=== PATIENT | female | born 1970 | race Caucasian/White ===

== ENCOUNTER 2017-12-20 09:15 | Emergency (ER) | payer OTHER ==
[2017-12-20 09:21] VITALS: BMI 23.8
[2017-12-20 09:24] VITALS: BP 132/84; PULSE 107; RESP 18; TEMP 99.3; O2SAT 100
--- NOTE | 2017-12-20 10:13 | C.PDOC ---
History Of Present Illness 47 year old female presents to the ER with a complaint of fever, chills, generalized weakness, generalized body aches, and sore throat; associated with mild runny nose and mild cough for the past 4 days. Patient reports having positive family members at home with similar symptoms. Denies recent travel. Time Seen by Provider: 12/20/17 09:22 Chief Complaint (Nursing): Flu-like Symptoms History Per: Patient History/Exam Limitations: no limitations Onset/Duration Of Symptoms: Days Current Symptoms Are (Timing): Still Present Location Of Pain: Throat, Diffuse Myalgias Sick Contacts (Context): None Associated Symptoms: Fever, Chills, Sore Throat, Cough, Sinus Drainage, Myalgias Ear Symptoms: Bilateral: None Recent travel outside of the [place]: No Past Medical History Reviewed: Historical Data, Nursing Documentation, Vital Signs Vital Signs: Last Vital Signs Temp 99.3 F 12/20/17 09:23 Pulse 107 H 12/20/17 09:23 Resp 18 12/20/17 09:23 BP 132/84 12/20/17 09:23 Pulse Ox 100 12/20/17 10:26 - Medical History PMH: Anemia Family History: States: Unknown Family Hx - Social History Hx Alcohol Use: No Hx Substance Use: No - Immunization History Hx Tetanus Toxoid Vaccination: No Hx Influenza Vaccination: No Hx Pneumococcal Vaccination: No Review Of Systems Except As Marked, All Systems Reviewed And Found Negative. Constitutional: Positive for: Fever, Chills, Weakness ENT: Positive for: Nose Discharge, Throat Pain Respiratory: Positive for: Cough Musculoskeletal: Positive for: Other (Body aches) Physical Exam - Physical Exam Additional Physical Exam Comments: Appears: Well Appearing. Non-toxic. Skin: No rash. Head: Atraumatic. Normacephalic. Eye(s): EOMI Oral: No pharyngeal erythema or exudates. Neck: No nuchal rigidity. Chest: No Deformity, No Tenderness Respiratory: No Accessory Muscle Use Gastrointestinal/Abdominal: Soft. No Tenderness. No guarding. No rebound. Back: No Vertebral Tenderness Extremity: Full ROM. No tenderness. No swelling. Cap Refill <2. Pulses: Normal. Neurological/Psych: Alert. Oriented x3. Gait: Steady. ED Course And Treatment O2 Sat by Pulse Oximetry: 100 (Room air) Pulse Ox Interpretation: Normal Medical Decision Making Medical Decision Making: Patient appears well, no PMHx, with symptoms consistent with viral syndrome or influenza like virus, out of window for tamiflu treatment. Treat supportively, f /u PMD, instructed to return to ED for worsening pain, fever, vomiting, dyspnea , or any other problem. Disposition - Disposition Referrals: Isai Villalobos MD [Staff Provider] - Disposition: HOME/ ROUTINE Disposition Time: 10:12 Condition: STABLE Prescriptions: Ibuprofen [Motrin] 600 mg PO Q6 #25 tab Instructions: Viral Syndrome (DC) Forms: [employer] (Georgian) - Clinical Impression Clinical Impression: Influenza-like illness - Scribe Statement The provider has reviewed the documentation as recorded by the Scribe Tai Wolf All medical record entries made by the Scribe were at my direction and personally dictated by me. I have reviewed the chart and agree that the record accurately reflects my personal performance of the history, physical exam, medical decision making, and the department course for this patient. I have also personally directed, reviewed, and agree with the discharge instructions and disposition.
== END 2017-12-20 10:14 | disposition home or self-care (01) ==
LOC: C.ER 09:15
DX: J11.1 Influenza due to unidentified influenza virus with other respiratory manifestations (principal)

== ENCOUNTER 2018-11-21 19:41 | Emergency (ER) | payer OTHER ==
[2018-11-21 19:41] VITALS: BMI 23.8
--- NOTE | 2018-11-21 20:19 | C.PDOC ---
History Of Present Illness 48 year old female presents with intermittent left sided chest pain for the past 2-3 days. Patient states the pain increases with movement.SHe reports Hx of left shoulder pain due to pinched nerve. Denies SOB, nausea, or vomiting. Chief Complaint (Nursing): Chest Pain History Per: Patient History/Exam Limitations: no limitations Onset/Duration Of Symptoms: Days (2-3) Current Symptoms Are (Timing): Still Present Modifying Factors: None Exacerbating Factors: None Alleviating Factors: None Recent travel outside of the [place]: No Past Medical History Reviewed: Historical Data, Nursing Documentation, Vital Signs Vital Signs: Last Vital Signs Temp 97.5 F L 11/21/18 19:58 Pulse 63 11/21/18 19:58 Resp 20 11/21/18 19:58 BP 159/93 H 11/21/18 19:58 Pulse Ox 98 11/21/18 19:58 - Medical History PMH: Anemia Denies: Chronic Kidney Disease Family History: States: Unknown Family Hx - Social History Hx Alcohol Use: No Hx Substance Use: No - Immunization History Hx Tetanus Toxoid Vaccination: No Hx Influenza Vaccination: No Hx Pneumococcal Vaccination: No Review Of Systems Constitutional: Negative for: Fever, Chills Cardiovascular: Positive for: Chest Pain. Negative for: Palpitations Respiratory: Negative for: Cough, Shortness of Breath Gastrointestinal: Negative for: Nausea, Vomiting Neurological: Negative for: Weakness, Numbness Physical Exam - Physical Exam Appears: Non-toxic Skin: Normal Color, Warm, Dry Head: Atraumatic, Normacephalic Eye(s): bilateral: Normal Inspection Oral Mucosa: Moist Neck: Normal, Supple Chest: Symmetrical, Tenderness (Mild to left lateral wall area) Cardiovascular: Rhythm Regular Respiratory: Normal Breath Sounds, No Rales, No Rhonchi, No Wheezing Gastrointestinal/Abdominal: Soft, No Tenderness Extremity: Normal ROM (x4) Neurological/Psych: Oriented x3, Normal Speech ED Course And Treatment - Laboratory Results Result Diagrams: 11/21/18 20:35 11/21/18 20:35 ECG: Interpreted By Me, Viewed By Me ECG Rhythm: Sinus Rhythm ECG Interpretation: Normal, No Acute Changes Interpretation Of ECG: NSR, normal tracings. Rate From EC O2 Sat by Pulse Oximetry: 98 (Room air) Pulse Ox Interpretation: Normal Progress Note: EKG, blood work, and CXR ordered. Disposition Counseled Patient/Family Regarding: Diagnosis - Disposition Referrals: [facility] [Outside] Disposition: HOME/ ROUTINE Disposition Time: 23:14 Condition: STABLE Prescriptions: Naproxen 375 mg PO TIDPC #20 tablet Instructions: Costochondritis (DC), High Blood Pressure (DC), Low Salt Diet Forms: [employer] (Zimbabwean) - POA Present On Arrival: None - Clinical Impression Clinical Impression: Chest wall pain - Scribe Statement The provider has reviewed the documentation as recorded by the Scribheide Wolf All medical record entries made by the Reyesibe were at my direction and personally dictated by me. I have reviewed the chart and agree that the record accurately reflects my personal performance of the history, physical exam, medical decision making, and the department course for this patient. I have also personally directed, reviewed, and agree with the discharge instructions and disposition.
[2018-11-21 20:46] LABS: BASO % 0.8 % (0.0-2.0); EOS # 0.3 K/uL (0.0-0.7); EOS % 5.5 % (0.0-4.0); LYMPH # 1.5 K/uL (1.0-4.3); LYMPH % 31.4 % (20.0-40.0); MEAN CORPUSCULAR HGB CONC 32.3 g/dL (33.0-37.0); MEAN PLATELET VOLUME 8.8 fL (7.2-11.7); MONO # 0.3 K/uL (0.0-0.8); MONO % 6.5 % (0.0-10.0); NEUT # 2.7 K/uL (1.8-7.0); NEUT % 55.8 % (50.0-75.0); NRBC % 0.1 % (0.0-2.0); RBC 5.19 Mil/uL (3.80-5.20); RED CELL DISTRIBUTION WIDTH 19.5 % (11.5-14.5); WHITE BLOOD COUNT 4.8 K/uL (4.8-10.8)
[2018-11-21 20:49] LABS: HEMOGLOBIN 13.5 g/dL (11.0-16.0); MEAN CELL VOLUME 80.4 fL (81.0-99.0)
[2018-11-21 21:04] LABS: ALB/GLOB RATIO 1.4 (1.0-2.1); ALBUMIN 4.4 g/dL (3.5-5.0); ALT/SGPT 12 U/L (9-52); AST/SGOT 19 U/L (14-36); BLOOD UREA NITROGEN 16 mg/dL (7-17); CALCIUM 10.6 mg/dl (8.6-10.4); GFR NON-AFRICAN AMERICAN > 60
[2018-11-21 23:25] VITALS: BP 150/87; PULSE 63; RESP 18; TEMP 97.9; O2SAT 99
--- NOTE | 2018-11-22 17:21 | RAD ---
Date of service: 11/21/2018 HISTORY: chest pain COMPARISON: No prior. TECHNIQUE: Chest PA and lateral FINDINGS: LUNGS: Mild hyperinflation; rule out underlying COPD. PLEURA: No significant pleural effusion identified. No pneumothorax apparent. CARDIOVASCULAR: No aortic atherosclerotic calcification present. Normal cardiac size. No pulmonary vascular congestion. OSSEOUS STRUCTURES: No significant abnormalities. VISUALIZED UPPER ABDOMEN: Normal. OTHER FINDINGS: None. IMPRESSION: Mild hyperinflation; rule out underlying COPD..
== END 2018-11-21 23:26 | disposition home or self-care (01) ==
LOC: C.ER 19:41
DX: R07.89 Other chest pain (principal)

== ENCOUNTER 2018-12-02 01:06 | Emergency (ER) | payer OTHER ==
[2018-12-02 01:06] VITALS: BMI 23.8
[2018-12-02 01:21] VITALS: TEMP 97.5
--- NOTE | 2018-12-02 02:22 | C.PDOC ---
History Of Present Illness 48 year old female with PMHx of HTN presents to the ED for evaluation of high blood pressure. Patient reports she checked her blood pressure at home and was elevated, patient became anxious. Patient states she recently was prescribed blood pressure medications couple of days ago. Patient denies headache, visual changes, nausea, vomit, CP, SOB, palpitations, weakness, numbness. Time Seen by Provider: 12/02/18 02:22 Chief Complaint (Nursing): High Blood Pressure History Per: Patient History/Exam Limitations: no limitations Onset/Duration Of Symptoms: Hrs Current Symptoms Are (Timing): Still Present Quality Of Symptoms: Asymptomatic Exacerbating Factor(s): Pos: Recent Change In Medication Recent travel outside of the [place]: No Additional History Per: Patient Past Medical History Reviewed: Historical Data, Nursing Documentation, Vital Signs Vital Signs: Last Vital Signs Temp 97.5 F L 12/02/18 01:16 Pulse 61 12/02/18 01:16 Resp 20 12/02/18 01:16 BP 135/89 12/02/18 01:16 Pulse Ox 98 12/02/18 01:16 - Medical History PMH: Anemia, HTN Denies: Chronic Kidney Disease Surgical History: No Surg Hx Family History: States: Unknown Family Hx - Social History Hx Alcohol Use: No Hx Substance Use: No - Immunization History Hx Tetanus Toxoid Vaccination: No Hx Influenza Vaccination: No Hx Pneumococcal Vaccination: No Review Of Systems Constitutional: Negative for: Fever, Chills Eyes: Negative for: Vision Change Cardiovascular: Negative for: Chest Pain, Palpitations Respiratory: Negative for: Shortness of Breath Gastrointestinal: Negative for: Nausea, Vomiting, Abdominal Pain Skin: Negative for: Rash Neurological: Negative for: Weakness, Numbness, Headache, Dizziness Physical Exam - Physical Exam Appears: Non-toxic, No Acute Distress Skin: Warm, Dry Head: Normacephalic Eye(s): bilateral: Normal Inspection, PERRL, EOMI Oral Mucosa: Moist Neck: Supple Chest: Symmetrical Cardiovascular: Rhythm Regular Respiratory: No Rales, No Rhonchi, No Wheezing Gastrointestinal/Abdominal: Soft, No Tenderness, No Guarding, No Rebound Back: Normal Inspection Extremity: Normal ROM Extremity: Bilateral: Atraumatic, Normal Color And Temperature, Normal ROM Neurological/Psych: Oriented x3, Normal Speech, Normal Cognition Gait: Steady ED Course And Treatment - Laboratory Results Result Diagrams: 12/02/18 03:33 12/02/18 03:33 ECG: Interpreted By Me, Viewed By Me ECG Rhythm: Sinus Rhythm (57), Nonspecific Changes O2 Sat by Pulse Oximetry: 98 (ON RA) Pulse Ox Interpretation: Normal Progress Note: Patient refused blood work because she recently went to see her PMD and her blood work was fine during that time. 03:11 - Patient still feels very anxious and now is requesting blood work. Reevaluation Time: 05:04 Reassessment Condition: Improved Medical Decision Making Medical Decision Making: Upon provider reevaluation patient is feeling better, is medically stable, and requires no further treatment in the ED at this time. Patient will be discharged home . Counseling was provided and all questions were answered regarding diagnosis and need for follow up withdr villalobos. There is agreement to discharge plan. Return if symptoms persist or worsen. Disposition Counseled Patient/Family Regarding: Studies Performed, Diagnosis, Need For Followup - Disposition Referrals: Isai Villalobos MD [Staff Provider] - Disposition: HOME/ ROUTINE Disposition Time: 02:22 Condition: FAIR Additional Instructions: Please return if symptoms recur Instructions: High Blood Pressure (DC) Forms: [employer] (Vietnamese) - Clinical Impression Clinical Impression: Hypertension - Scribe Statement The provider has reviewed the documentation as recorded by the Scribe Ivan Montenegro All medical record entries made by the Scribe were at my direction and personally dictated by me. I have reviewed the chart and agree that the record accurately reflects my personal performance of the history, physical exam, medical decision making, and the department course for this patient. I have also personally directed, reviewed, and agree with the discharge instructions and disposition.
[2018-12-02 03:41] LABS: BASO % 0.7 % (0.0-2.0); EOS # 0.3 K/uL (0.0-0.7); EOS % 7.5 % (0.0-4.0); HEMOGLOBIN 14.2 g/dL (11.0-16.0); LYMPH # 1.5 K/uL (1.0-4.3); LYMPH % 35.6 % (20.0-40.0); MEAN CELL VOLUME 81.6 fL (81.0-99.0); MEAN CORPUSCULAR HEMOGLOBIN 26.8 pg (27.0-31.0); MEAN CORPUSCULAR HGB CONC 32.8 g/dL (33.0-37.0); MEAN PLATELET VOLUME 9.2 fL (7.2-11.7); MONO # 0.2 K/uL (0.0-0.8); MONO % 5.9 % (0.0-10.0); NEUT # 2.1 K/uL (1.8-7.0); NEUT % 50.3 % (50.0-75.0); RBC 5.32 Mil/uL (3.80-5.20); RED CELL DISTRIBUTION WIDTH 17.9 % (11.5-14.5); WHITE BLOOD COUNT 4.1 K/uL (4.8-10.8)
[2018-12-02 03:45] LABS: SQUAMOUS EPITHIAL 6 /hpf (0-5); URINE BACTERIA OCC (<OCC); URINE BILIRUBIN NEGATIVE (NEGATIVE); URINE BLOOD NEGATIVE (NEGATIVE); URINE CLARITY Clear (Clear); URINE COLOR Yellow (YELLOW); URINE GLUCOSE (UA) NORMAL (Normal); URINE LEUKOCYTE ESTERASE 3+ Leu/uL (Negative); URINE PROTEIN NEGATIVE (NEGATIVE); URINE UROBILINOGEN NORMAL mg/dL (0.2-1.0)
[2018-12-02 03:59] LABS: ALB/GLOB RATIO 1.4 (1.0-2.1); ALBUMIN 4.6 g/dL (3.5-5.0); ALT/SGPT 22 U/L (9-52); AST/SGOT 24 U/L (14-36); BLOOD UREA NITROGEN 13 mg/dL (7-17); CALCIUM 10.8 mg/dl (8.6-10.4); GFR NON-AFRICAN AMERICAN > 60
[2018-12-02 04:01] LABS: HCG,QUALITATIVE URINE NEGATIVE (NEGATIVE)
[2018-12-02 04:23] VITALS: BP 148/91; PULSE 67; RESP 21
[2018-12-02 05:07] VITALS: O2SAT 98
--- NOTE | 2018-12-03 12:43 | CARD ---
APPROVED REPORT Date of service: 12/02/2018 EKG Measurement Heart [id number] <Conclusion> Sinus bradycardia Possible Left atrial enlargement Cannot rule out Anterior infarct, age undetermined Abnormal ECG
== END 2018-12-02 05:13 | disposition home or self-care (01) ==
LOC: C.ER 01:06
DX: I10 Essential (primary) hypertension (principal); D64.9 Anemia, unspecified

== ENCOUNTER 2019-01-26 10:21 | Outpatient (CLI) | payer OTHER | END 2019-01-26 10:22 | disposition home or self-care (01) | LOC: C.USIC 10:22 ==